=== PATIENT | female | born 1960 | race Caucasian/White ===

== ENCOUNTER 2016-07-18 10:08 | Day surgery (SDC) | payer OTHER ==
[~2016-07-18] VITALS: Ht 160 cm; Wt 79.4 kg
[~2016-07-18 10:08] MED LIST: D ME PO; ESTR42.52 VAGINAL; IBUP200C PO; Sodium Chloride LOK Flush 10 mL Syringe IV PRN; VALA500T38 PO; VITB1TAB PO; fentaNYL-PF 50 mCg/mL 2 mL Inj IVPUSH PRN
[2016-07-18 10:28] VITALS: BP 141/92; PULSE 75; RESP 16; O2SAT 96
[2016-07-18] MEDS: 0.9% Sodium Chloride 1,000 ML IV SCH ×3 (10:29→11:18)
[2016-07-18 11:28] VITALS: BP 120/76; PULSE 63; RESP 16; O2SAT 98
[2016-07-18 11:38] VITALS: BP 127/73; PULSE 62; RESP 16; O2SAT 98
[2016-07-18 11:48] VITALS: BP 133/79; PULSE 61; RESP 16; O2SAT 98
--- NOTE | 2016-07-18 22:51 | ENDO ---
[address] [address] ENDOSCOPY PROCEDURE PATIENT: NILDA BOOKER : 1960 MR#: [id number] ADMIT: 07/18/2016 JOB ID: [id number] DATE: 07/18/2016 PRIMARY PROVIDER: Carmen Ziegler MD PROCEDURE: Colonoscopy. INDICATIONS: A 55-year-old female with a personal history of colon polyps returning for surveillance. EQUIPMENT: PCF H 180 AL. SEDATION: 4 mg Versed and 75 mcg fentanyl. COMPLICATIONS: None identified. BOWEL PREPARATION: Fair, adequate exam. PROCEDURE INFORMATION: After the risks and benefits were explained, written and verbal informed consent was obtained. The patient was brought into the endoscopy suite and placed into the left lateral decubitus position. Sedation was achieved as above. A digital rectal examination accomplished. No significant pathology appreciated. The scope was introduced into the rectum and advanced to the cecum as identified by the appendiceal orifice and ileocecal valve. The scope was slowly withdrawn to carefully examine the mucosa for any defects or lesions. Retroflexed views were avoided in the rectum. Multiple direct views were made through the dentate line for exclusion of pathology. The colon was decompressed, the scope removed the patient who tolerated the procedure well. FINDINGS: No significant polyps, mass lesions, or inflammatory features identified throughout. ENDOSCOPIC DIAGNOSIS: Visually unremarkable colonoscopy to cecum. RECOMMENDATIONS: Considering personal history of adenomatous colon polyps, repeat colonoscopy five years.
== END 2016-07-18 23:59 | disposition home or self-care (01) ==
LOC: END 10:08
PROVIDERS: ATTEND Internal Medicine Gastroenterology
DX: Z12.11 Encounter for screening for malignant neoplasm of colon (principal); Z86.010 Personal history of colon polyps; I10 Essential (primary) hypertension
CPT/HCPCS: G0105; G0500; J7030